=== PATIENT | male | born 1960 | race Caucasian/White ===

== ENCOUNTER → 2018-02-19 | Outpatient (CLI) | payer BC, OTHER ==
[~2018-02-19] VITALS: Ht 182.9 cm; Wt 98.9 kg
[~2018-02-19] MED LIST: ASPIR 8181 MG PO; ATORVASTATIN CA40 MG PO
--- NOTE | ~2018-02-19 | HPC ---
[facility] [place] [address] PAIN MANAGEMENT CONSULTATION Name: LYNETTE NICOLE Luca Room #: REG [facility] Te#: [id number] Admission: 02/19/18 Attend Phys: Loco Richards DO Discharge: Date of : 56 Report #: [id number] THIS REPORT FOR: //name// CC: Loco TEMPLE MD DATE OF SERVICE: 02/19/2018 REFERRING PHYSICIAN: Javon Temple MD CHIEF COMPLAINT: Low back pain, left lower extremity pain with paresthesias. HISTORY OF PRESENT ILLNESS: As you know, the patient is a 57-year-old male who reports acute onset of low back pain, left lower extremity pain that presented in November 2017. The patient denies specific injury or trauma that may have led to symptom development. He states that his pain was so intense, he could not walk or lay down for nearly 3 weeks, he was placing pain at that time 07/24. He states his pain became so intense he considered even a surgical excision of his left leg in hopes of improving symptoms. He states his pain has begun to improve spontaneously, he is currently taking gabapentin, which may be also contributing to improvement in symptoms. He states his left foot remains completely numb, his buttock and back are "achy and sore," but not as intense as it was during those 3 weeks between November and today's date. He indicates that despite conservative treatment, his pain continues, he was subsequently referred to our clinic after undergoing MRI, which showed significant changes that warranted a referral to our clinic. The patient indicates today pain is continuous and constant, describes the pain as burning, crushing, sharp, stabbing, numbness, tingling and tender, places current pain score 4/10, daily average of 4/10, worst pain has been is 10/10. The patient states that sitting and doing any activities exacerbate symptoms, standing and repositioning tends to improve pain. He has been referred to our clinic to discuss treatment options for suspected lumbar radiculopathy secondary to the findings of a recent MRI. PAST MEDICAL HISTORY: Dyslipidemia. PAST SURGICAL HISTORY: Bilateral laparoscopic inguinal herniorrhaphy and umbilical herniorrhaphy in December 2016. SOCIAL HISTORY: The patient is a smoker 3/4 pack of tobacco per day, has done so for 40 years. Denies IV or illicit drug use. Admits to one alcoholic beverage per day. He is a nurse ict quality assurance engineer. He is working, not receiving workmen's compensation. He is unaccompanied at today's visit. He indicates he is not in litigation in regards to pain. He is not receiving disability income. [address] [address] PAIN MANAGEMENT CONSULTATION Name: LYNETTE NICOLE Room #: REG [facility] Tiwari#: [id number] Admission: 02/19/18 Attend Phys: Loco Richards DO Discharge: Date of : 56 Report #: [id number] REVIEW OF SYSTEMS: Positive for wearing corrective eyewear, low back pain, left lower extremity pain and paresthesias, dyslipidemia. All other review of systems negative per 12-point review of systems other than those listed in history of present illness. PAIN IMPACT SCORE: 24/70 indicating [id number] interference of daily activities secondary to pain. ALLERGIES: SIMVASTATIN. CURRENT MEDICATIONS: Aspirin 81 mg per day and atorvastatin 40 mg per day. IMAGING: MRI lumbar spine that was obtained on 01/10/2018, shows multilevel degenerative changes, facet arthrosis with congenitally short pedicles, findings of the L4-L5 level show moderate central canal stenosis, marked lateral recess stenosis on the left and marked neural foraminal stenosis on the left, moderate right neural foraminal narrowing. PHYSICAL EXAMINATION: VITAL SIGNS: Blood pressure 140/85, pulse 79, respiratory rate 18 and unlabored, the patient is 98% on room air, height 6 feet tall, weight 218 pounds, BMI calculated 29.6. GENERAL: Well-developed, well-nourished, well-hydrated 57-year-old male, he appears his stated age, he is placing current pain score at 4/10. HEENT: Normocephalic, atraumatic. Pupils are equal, round, and reactive to light. Extraocular muscles are intact. Sclerae are nonicteric without injection. NEUROLOGIC: Cranial nerves 2-12 are grossly intact. The patient deemed an excellent historian. LUNGS: Clear, no wheeze, rhonchi, or rales. CARDIOVASCULAR: Regular. No appreciable gallop or rub. ABDOMEN: Soft, nontender, nondistended, normoactive bowel sounds. EXTREMITIES: Show no clubbing, no cyanosis, and no edema. MUSCULOSKELETAL: Lower extremity strength appears equal and symmetrical 5/5. Slight giveaway strength noted with hip flexion, knee extension on the left when compared to the right. The patient has decreased tactile sensation to light touch along what appears to be L5 dermatome on the left. Ankle clonus negative. Babinski is negative. Seated straight leg raising positive left. Supine straight leg raising positive on the left. Gait is antalgic favoring left lower extremity over right. Lumbar provocation testing is met with no increase in overall pain. This is including extension, rotation, and lateral flexion. Modified Gaenslen's positive for axial low back pain. ASSESSMENT: 1. Lumbar radiculopathy. 2. Moderate central canal stenosis. [facility] [address] [place] [address] PAIN MANAGEMENT CONSULTATION Name: LYNETTE NICOLE Room #: REG [facility] Tiwari#: [id number] Admission: 02/19/18 Attend Phys: Loco Richards DO Discharge: Date of : 56 Report #: [id number] 3. Marked lateral recess stenosis. 4. Marked left foraminal stenosis. 5. Facet arthropathy of the lumbar spine. 6. Displacement of lumbar intervertebral disk with radiculopathy. 7. Lumbosacral spondylosis with radiculopathy. 8. Chronic intractable pain. PLAN: 1. Based on today's physical exam, the history the patient was provided, the description the patient uses in regards to pain as well as the distribution of symptoms and the finding on MRI likely source of the patient's pain is lumbar radiculopathy. His symptoms do correlate to the findings at the L4-L5 level, which show moderate central canal stenosis, marked lateral recess stenosis and marked left neural foraminal stenosis the likely source of the patient's symptoms. The patient and I discussed the options for treatment given the extent of compression of the nerve roots at the L4-L5 level. The following discussion was had with the patient in regards to treatment options. We discussed physical therapy, stretching exercises, core strengthening as a treatment option. We discussed medication management with neuropathic medications such as gabapentin, Lyrica, nortriptyline, amitriptyline, and Cymbalta. We discussed lumbar epidural injections under fluoroscopic guidance, spinal cord stimulator therapy and surgical options. After reviewing these treatment options over a 25-minute period of time, the patient chose to begin with medication management in hopes of improving pain and he is going to be seeking neurosurgery consultation. 2. The patient was provided a sample pack of Gralise, this is once a day dosing of gabapentin to be taken in the evening hours. We chose this medication specifically due to its convenient and its lack of low side effects during the daytime hours. The patient will initiate the medication starting 300 mg dose to night and then follow the titration pack as directed. Once he reaches an efficacious level, he is to contact our clinic so that we can provide a full prescription. I did advise the patient that coverage for this medication can be difficult, but we will have assistance programs established that can help him achieve this authorization if he finds this medication beneficial. He will start the medication today, watch for side effects of sleepiness, disorientation, mental slowing while initiating therapy. If he has any side effects, contact our clinic immediately. No side effects, but notes improvement in symptoms contact our clinic so we can provide a full prescription. 3. The patient has requested that we provide a referral to neurosurgery, we have provided this to the patient today. The patient will need to collect his MRI findings as well as his imaging to accompany him to the consultation. The patient states he has this available and we will be taking this to the consultation once it has been established. He was given phone numbers for the neurosurgery team we recommend and he will contact them to set up an [address] [address] PAIN MANAGEMENT CONSULTATION Name: LYNETTE NICOLE Room #: REG T[facility] Tiwrai#: [id number] Admission: 02/19/18 Attend Phys: Loco Richards DO Discharge: Date of : 56 Report #: [id number] appointment. 4. We did discuss the possibility of epidural injections at this time, the patient states given his severity of problems he wishes to move forward with more aggressive treatment options such as above. We will respect the patient's request at this point, but we will be available to see him back if epidural injections are requested. 5. We wish to thank the referring physician, Dr. Temple for the opportunity to see this patient in consultation. We will keep you apprised of any treatment options that we deem necessary through our clinic. We wish him well with his surgical consultation. Again, we wish to thank you for the opportunity to see this patient in consultation, we will see him back on an as needed basis. By: [id number] Loco Richards DO /gildardo
[2018-02-19 08:17] VITALS: BP 140/85
== END ==
LOC: PAIN 08:05
DX: M47.27 Other spondylosis with radiculopathy, lumbosacral region (principal); E78.5 Hyperlipidemia, unspecified; Z88.8 Allergy status to other drugs, medicaments and biological substances